=== PATIENT | female | born 1960 | race Caucasian/White ===

== ENCOUNTER 2016-12-31 07:12 | Emergency (ER) | payer OTHER ==
[2016-12-31 07:26] VITALS: BP 120/82
--- NOTE | 2016-12-31 08:10 | EDM.PDOC ---
ED HPI GENERAL MEDICAL PROBLEM - General Chief Complaint: Back Pain or Injury Stated Complaint: BACK PAIN Time Seen by Provider: 12/31/16 08:00 - History of Present Illness INITIAL COMMENTS - FREE TEXT/NARRATIVE: 56-year-old female presents emergency room with low back pain and pelvis pain. Patient significant pain when she sits down. This is getting worse with time. The patient fell on some stairs landing on her left Buttocks on Wednesday of this week. She did not have significant discomfort immediately after this but this is progressively been getting worse. The patient now has some pain that extends down her left leg mostly down the back of her thigh at times she has some discomfort the goes down the medial lower leg but not into her foot. She describes it as an achy sensation not a burning or electrical tingly sensation. The patient is ambulatory without to much difficulty. She has a large bruise developing on her left buttocks. Patient has not had any loss of bowel or bladder control. What seems to bother her the most is prolonged sitting. The patient is concerned about this as she has a vacation coming up in about a week. Patient denies any significant past medical problems related to her back however has had some worsening low back aches that been fairly mild. This is been going on for about a year or so. 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: Neurological History: Reports: Migraines Psychiatric History: Reports: Anxiety Social & Family History - Tobacco Use Smoking Status *Q: Never Smoker Second Hand Smoke Exposure: No - Caffeine Use Caffeine Use: Reports: Energy Drinks - Recreational Drug Use Recreational Drug Use: No ED ROS GENERAL - Review of Systems Review Of Systems: See Below Constitutional: Reports: No Symptoms Respiratory: Reports: No Symptoms Cardiovascular: Reports: No Symptoms GI/Abdominal: Reports: No Symptoms : Reports: No Symptoms Musculoskeletal: Reports: Back Pain, Leg Pain, Muscle Stiffness Neurological: Reports: No Symptoms ED EXAM,LOWER BACK PAIN/INJURY - Physical Exam Exam: See Below Exam Limited By: No Limitations General Appearance: Alert, No Apparent Distress Head: Atraumatic, Normocephalic Neck: Normal Inspection, Supple, Non-Tender, Full Range of Motion Respiratory/Chest: No Respiratory Distress, Lungs Clear, Normal Breath Sounds Cardiovascular: Regular Rate, Rhythm, No Edema, No Murmur GI/Abdominal: Normal Bowel Sounds, Soft, Non-Tender Back Exam: Normal Inspection, Muscle Spasm (She has left-sided paraspinous muscle spasm), Paraspinal Tenderness, Vertebral Tenderness (She has discomfort in the low lumbar region). No: CVA Tenderness (L), CVA Tenderness (R) Extremities: Normal Inspection, Other (Straight leg raises are nondiagnostic on her left side she has localized back pain at about 70 of flexion right-sided straight leg raises are normal) Course - Vital Signs Last Recorded V/S: Last Vital Signs Temp 36.8 C 12/31/16 07:21 Pulse 76 12/31/16 07:21 Resp 18 12/31/16 07:21 BP 120/82 12/31/16 07:21 Pulse Ox 99 12/31/16 07:21 - Re-Assessments/Exams Free Text/Narrative Re-Assessment/Exam: 12/31/16 09:08 X-ray examination of the pelvis is unremarkable of the LS spine is remarkable for spondylolisthesis at L3-4 L3 no acute changes noted. 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 The results of this are reviewed with the patient discussed follow-up with her regular provider on Wednesday on a long-term basis she should avoid lifting anything heavier than 20-25 pounds. She 'll be started on nighttime Flexeril and Naprosyn. Departure - Departure Time of Disposition: 09:30 Disposition: Home, Self-Care 01 Clinical Impression: Low back pain, Spondylolisthesis at L3-L4 level - Discharge Information Prescriptions: Naproxen [Naprosyn] 500 mg PO Q12HR #20 tablet Cyclobenzaprine [Flexeril] 10 mg PO BEDTIME #7 tablet Forms: ED Department Discharge Additional Instructions: Return to the emergency room with any questions problems or worsening symptoms. Follow-up in the clinic on Wednesday for recheck. He didn't started on 2 medications the first one is Naprosyn, or naproxen take one twice daily with meals you may use some Aleve on an as-needed basis after you're done with the naproxen. You been started on a muscle relaxant, Flexeril or cyclobenzaprine. Take one in the evenings this will also be rest and will improve your muscle spasm. This medication can cause sedation, don't use with alcohol and allow 12 hours after using this medication before driving or returning to work. You have spondylolisthesis this appears to be chronic. This is where one of the vertebrae tries to move forward. Avoid any heavy lifting in the future. Do not lift over 20 or 25 pounds.
--- NOTE | 2016-12-31 09:19 | CR ---
Pelvis: AP view of the pelvis was obtained. Comparison: No previous study. Slight joint space narrowing is seen superiorly within the right hip. Joint space within the left hip is preserved. Sacroiliac joints are unremarkable. No fracture or other abnormality is seen. Impression: 1. Mild joint space narrowing superiorly within the right hip. 2. AP pelvis exam is otherwise unremarkable. Diagnostic code #2
--- NOTE | 2016-12-31 09:22 | CR ---
Lumbar spine: AP, lateral and coned-down lateral views centered to the lumbosacral junction were obtained. Moderate disc space narrowing noted at L3-L4. Mild spondylolisthesis by about 5 mm is seen which is most likely due to anomalous apophyseal joint. Other disc spaces are maintained. Mild endplate osteophytes are seen at L3-L4. Pedicles as well as transverse and spinous processes are intact. Impression: 1. Findings at L3-L4 felt to be chronic. Nothing acute is identified. Diagnostic code #2
== END 2016-12-31 09:50 | disposition home or self-care (01) ==
LOC: JD.ED 07:12
DX: M43.16 Spondylolisthesis, lumbar region (principal); F41.9 Anxiety disorder, unspecified; Z79.899 Other long term (current) drug therapy; Z88.0 Allergy status to penicillin
CPT/HCPCS: 72100; 72100-26; 72170; 72170-26; 99283; 99284

== ENCOUNTER 2018-09-09 12:10 | Emergency (ER) | payer OTHER ==
[2018-09-09] MEDS ORDERED: predniSONE 20 MG Tab PO ONE (12:38)
[2018-09-09] MEDS ORDERED: EPINEPHrine 1 MG/ML SDV IM ONE (12:40)
[2018-09-09] MEDS ORDERED: Famotidine 20 MG Tab PO ONE (13:04)
[2018-09-09] MEDS ORDERED: diphenhydrAMINE 50 MG Cap PO ONE (13:04)
--- NOTE | 2018-09-09 13:15 | EDM.PDOC ---
<Michael Davey Keerthi - Last Filed: 09/09/18 15:01> ED HPI GENERAL MEDICAL PROBLEM - General Chief Complaint: Allergic Reaction Stated Complaint: ALLERGIC RX SENT BY NICK ROD Time Seen by Provider: 09/09/18 12:23 Source of Information: Reports: Patient, RN Notes Reviewed History Limitations: Reports: No Limitations - History of Present Illness INITIAL COMMENTS - FREE TEXT/NARRATIVE: 57-year-old female presents to the ER with complaints of allergic reaction to something. She noticed that she had hives and itching along her jaw line and they are now spreading into her ears, back of her throat, hair line and they are making her miserable. She has been taking Benadryl with the last dose at 0700 this morning 50 mg. She has been sick since Wednesday evening at 8 pm when she developed the stomach flu like her grandson had. She had diarrhea and vomiting that lasted till Wednesday then she developed a fever, Wednesday she had body aches, Wednesday she went to work and felt horrible exhausted. she developed rash, hives to her face and now they are spreading. Her throat does feel scratchy and slightly tight. She feels it is getting worse and its driving her nuts. 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 History: heart attack 2006 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: Neurological History: Reports: Migraines Psychiatric History: Reports: Anxiety Social & Family History - Tobacco Use Smoking Status *Q: Never Smoker - Caffeine Use Caffeine Use: Reports: Coffee - Recreational Drug Use Recreational Drug Use: No ED ROS ALLERGIC REACTION - Review of Systems Review Of Systems: See Below Constitutional: Reports: No Symptoms HEENT: Denies: Ear Pain, Hearing Loss, Rhinitis, Throat Pain Respiratory: Reports: Other (slight tightness in throat) Cardiovascular: Reports: No Symptoms Endocrine: Reports: No Symptoms GI/Abdominal: Reports: No Symptoms : Reports: No Symptoms Musculoskeletal: Reports: No Symptoms Skin: Reports: Dryness, Rash, Urticaria Neurological: Reports: No Symptoms Psychiatric: Reports: No Symptoms Hematologic/Lymphatic: Reports: No Symptoms Immunologic: Reports: Other (unsure what cause the allergic reaction and hives) ED EXAM GENERAL NO PERIP PULSE - Physical Exam Exam: See Below Exam Limited By: No Limitations General Appearance: Alert, WD/WN, No Apparent Distress Eye Exam: Bilateral Eye: EOMI, PERRL Ears: Normal External Exam, Normal Canal (hive to the right inner ear at the 6 o 'clock position near the base of the TM, she has a hive at the 1 o'clock position to the left cannal near the TM. ), Hearing Grossly Normal, Normal TMs Nose: Normal Inspection, Normal Mucosa, No Blood. No: Nasal Drainage Throat/Mouth: Normal Inspection, Normal Lips, Normal Teeth, Normal Gums, Normal Oropharynx (throat is slightly red with no ulcers or hive seen), Normal Voice Head: Atraumatic, Normocephalic, Other (Pt is more red along the lower jaw and lips are valentine red. ). No: Facial Swelling, Facial Tenderness, Sinus Tenderness Neck: Normal Inspection, Supple, Non-Tender, Full Range of Motion. No: Lymphadenopathy (L), Lymphadenopathy (R) Respiratory/Chest: No Respiratory Distress, Lungs Clear, Normal Breath Sounds, No Accessory Muscle Use, Other (slight tightness in the throat that itches some) Cardiovascular: Normal Peripheral Pulses, Regular Rate, Rhythm, No Edema, No Gallop, No JVD, No Murmur, No Rub GI/Abdominal: Normal Bowel Sounds, Soft, Non-Tender, No Distention (Female) Exam: Deferred Rectal (Female) Exam: Deferred Back Exam: Normal Inspection, Full Range of Motion Extremities: Normal Inspection, Normal Range of Motion, Non-Tender, Normal Capillary Refill Neurological: Alert, Oriented, CN II-XII Intact, Normal Cognition, Normal Gait, Normal Reflexes, No Motor/Sensory Deficits Psychiatric: Normal Affect, Normal Mood Skin Exam: Warm, Dry, Intact, Normal Color, Erythema (multiple lesions to her jaw line that vary in size and shape; did note increase scaling to ) Lymphatic: No Adenopathy Course - Vital Signs Last Recorded V/S: Last Vital Signs Temp 97.4 F 09/09/18 12:17 Pulse 79 09/09/18 13:28 Resp 20 09/09/18 12:17 BP 133/86 09/09/18 12:17 Pulse Ox 95 09/09/18 13:28 - Orders/Labs/Meds Meds: Medications Discontinued Medications Generic Name Dose Route Start Last Admin Trade Name Shannan PRN Reason Stop Dose Admin Diphenhydramine HCl 50 mg 09/09/18 13:04 09/09/18 13:11 Benadryl PO 09/09/18 13:05 50 mg ONETIME ONE Administration Epinephrine HCl 0.3 mg 09/09/18 12:40 09/09/18 12:56 Adrenalin IM 09/09/18 12:41 0.3 mg ONETIME ONE Administration Famotidine 20 mg 09/09/18 13:04 09/09/18 13:11 Pepcid PO 09/09/18 13:05 20 mg ONETIME ONE Administration Lorazepam 0.5 mg 09/09/18 13:31 09/09/18 15:02 Ativan PO 09/09/18 13:32 Not Given ONETIME ONE Prednisone 60 mg 09/09/18 12:38 09/09/18 12:56 Prednisone PO 09/09/18 12:39 60 mg ONETIME ONE Administration - Re-Assessments/Exams Free Text/Narrative Re-Assessment/Exam: 09/09/18 13:00 In to see patient she is still itching nothing has changed, discussed the medications that she will be receiving benadry, pepcid and prednisone. Pt is okay with taking these medications. 09/09/18 14:00 In to see patient and she is still itching a lot to her ears and jaw. Her lips are not burning as much she is finally feeling the jitters from the epinephrine. Did talk with her about how long it takes the medications to work and she understands that it will take awhile. She is wanting to hold off on the ativan for now unless her jitters get worse. Departure - Departure Disposition: Home, Self-Care 01 Clinical Impression: Allergic reaction Qualifiers: Encounter type: initial encounter Qualified Code(s): T78.40XA - Allergy, unspecified, initial encounter - Discharge Information Prescriptions: predniSONE [Prednisone] 20 mg PO DAILY #10 tablet Referrals: Nick Rod PA-C [Primary Care Provider] - Forms: ED Department Discharge Additional Instructions: Stop any current lotions or creams that you have been using. If you do need anything for moisturization Lubriderm is safe. Continue Benadryl every 6-8 hours as needed for severe rash or itching, also start Claritin or Zyrtec 10 mg daily. Prednisone 40 mg for the next 5 days, take that in the morning with your next dose tomorrow morning. Follow-up with your regular medical provider if not much better within 3-5 days as expected, return to ED as needed if symptoms worsening in any way. 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 I have also examined patient. I agree with hx and exam as documented. 09/10/18 13:50 Departure - Departure Time of Disposition: 14:35 Condition: Fair
[2018-09-09 13:20] VITALS: BP 133/86
[2018-09-09] MEDS ORDERED: LORazepam 0.5 MG Tab PO ONE (13:31)
== END 2018-09-09 14:55 | disposition home or self-care (01) ==
LOC: JD.ED 12:10
DX: T78.40XA Allergy, unspecified, initial encounter (principal); F41.9 Anxiety disorder, unspecified; Z79.899 Other long term (current) drug therapy; Z88.0 Allergy status to penicillin
CPT/HCPCS: 96372; 99283; A9270; J0171

== ENCOUNTER 2021-02-04 14:13 | Emergency (ER) | payer OTHER ==
[2021-02-04 14:24] VITALS: BP 157/102; PULSE 83
--- NOTE | 2021-02-04 14:51 | EDM.PDOC ---
ED HPI GENERAL MEDICAL PROBLEM - General Chief Complaint: Upper Extremity Injury/Pain Stated Complaint: FALL/LEFT ARM/SHOULDER INJURY Time Seen by Provider: 02/04/21 14:24 Source of Information: Reports: Patient History Limitations: Reports: No Limitations - History of Present Illness INITIAL COMMENTS - FREE TEXT/NARRATIVE: 60-year-old female presents the emergency department today after falling down approximately 5 stairs approximately 1 hour ago. She states that she was walking down stairs and missed a step and then kind of fell and landed on her left hip and slid down the remaining stairs. She adamantly denies hitting her head or being knocked unconscious. She does not recall exactly how she landed on her arm however she has pain to her left shoulder the middle of her left humerus. And her distal radius and ulnar area. She also has pain noted to the left buttocks area. She states she has an implanted device for her bladder in that area and she is concerned that this may have broken as she feels as though she is getting electric shock to her left buttocks. Left Arm Pain Score (Numeric/FACES): 6 - Related Data Allergies Allergy/AdvReac Type Severity Reaction Status Date / Time Penicillins Allergy can't Verified 02/04/21 14:26 remember Home Meds: Home Meds Lisinopril 2.5 mg PO DAILY 09/09/18 [History] Sertraline [Zoloft] 100 mg PO DAILY 09/09/18 [History] Zolpidem [Ambien] 10 mg PO BEDTIME 09/09/18 [History] predniSONE [Prednisone] 20 mg PO DAILY #10 tablet 09/09/18 [Rx] Past Medical History HEENT History: Reports: Other (See Below) Other HEENT History: "eye twitching" Cardiovascular History: Reports: Other (See Below) Other Cardiovascular History: heart attack 2006 Genitourinary History: Reports: Urinary Incontinence 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: Neurological History: Reports: Migraines Psychiatric History: Reports: Anxiety - Past Surgical History Female Surgical History: Reports: Other (See Below) Other Female Surgeries/Procedures: implant placed in hip for incontinence Musculoskeletal Surgical History: Reports: Shoulder Surgery Social & Family History - Tobacco Use Tobacco Use Status *Q: Never Tobacco User Second Hand Smoke Exposure: No - Caffeine Use Caffeine Use: Reports: Coffee - Recreational Drug Use Recreational Drug Use: No Review of Systems - Review of Systems Review Of Systems: Comprehensive ROS is negative, except as noted in HPI. ED EXAM, GENERAL - Physical Exam Exam: See Below Exam Limited By: No Limitations General Appearance: Alert, WD/WN, No Apparent Distress Ears: Normal External Exam, Hearing Grossly Normal Nose: Normal Inspection Throat/Mouth: Normal Inspection, Normal Lips, Normal Voice, No Airway Compromise Head: Atraumatic Neck: Normal Inspection, Supple Respiratory/Chest: No Respiratory Distress, No Accessory Muscle Use Cardiovascular: Normal Peripheral Pulses, Regular Rate, Rhythm, No Edema Peripheral Pulses: 2+: Radial (L), Radial (R) GI/Abdominal: No Distention (Female) Exam: Deferred Rectal (Female) Exam: Deferred Back Exam: Normal Inspection Extremities: Normal Inspection. No: Normal Range of Motion (Creased range of motion to left shoulder), Non-Tender (Tenderness noted to left posterior shoulder, left middle anterior humerus, left wrist) Neurological: Alert, Oriented, Normal Cognition Psychiatric: Normal Affect, Normal Mood Skin Exam: Warm, Dry, Intact, Normal Color, No Rash Lymphatic: No Adenopathy Course - Vital Signs Text/Narrative:: Upon assessment, the patient has pain to posterior left shoulder area. She has pain noted to the anterior mid humerus area. She complains of pain noted to the distal radius and ulnar area as well as numbness and tingling to all the fingertips. She is able to feel when I touch her fingers however and she is able to wiggle all digits. Radial pulses present. There is no swelling or bruising noted to the areas where she complains of pain and tenderness. She was able to ambulate into the emergency department and complains of pain to the left buttock area. There is no bruising or redness noted to that area. And is unable to raise her left arm laterally or anteriorly. I have ordered an x-ray of the left hip with pelvis, x-ray of the left shoulder, left humerus, left forearm and left wrist. We will also order for her to receive Tylenol 975 mg p.o. x1 dose now. Last Recorded V/S: Last Vital Signs Temp 97 F 02/04/21 14:21 Pulse 83 02/04/21 14:21 Resp 16 02/04/21 14:21 BP 157/102 H 02/04/21 14:21 Pulse Ox 95 02/04/21 14:21 - Orders/Labs/Meds Orders: Active Orders 24 hr Category Date Time Status Hip Min 2V or 3V w Pelvis Lt [CR] Stat Exams 02/04/21 14:43 Taken Meds: Medications Discontinued Medications Generic Name Dose Route Start Last Admin Trade Name Shannan PRN Reason Stop Dose Admin Acetaminophen 975 mg 02/04/21 14:44 02/04/21 15:28 Acetaminophen 325 Mg Tab PO 02/04/21 14:45 975 mg NOW ONE Administration - Re-Assessments/Exams Free Text/Narrative Re-Assessment/Exam: 02/04/21 15:39 Radiologist impression 4 view of the left wrist: 1. No acute bony abnormality is seen on left wrist exam Radiologist impression 2 view of the left forearm: 1. Nothing acute is seen on 2 view of left forearm study. Radiologist impression 2 view of the left humerus: 1. Nothing acute is appreciated on 2 view of the left humerus study. Radiologist impression 3 view of left shoulder: 1. Mild degenerative change within the acromioclavicular joint. 2. Nothing acute is seen on left shoulder study. Radiologist impression AP views of the pelvis as well as frog-leg lateral view of the left hip: 1. Mild degenerative change within both hips. 2. Electrostimulation device is seen. 3. Nothing acute is otherwise seen on AP pelvis or 2 view left hip exam. Patient will be discharged home in place into the left shoulder sling. To prevent further injury or pain. Will recommend that she follow-up with Dr. Linares in about a week if she is not feeling better. Departure - Departure Time of Disposition: 15:45 Disposition: Home, Self-Care 01 Condition: Good Clinical Impression: Contusion of left shoulder Qualifiers: Encounter type: initial encounter Qualified Code(s): S40.012A - Contusion of left shoulder, initial encounter Contusion of left arm Qualifiers: Encounter type: initial encounter Qualified Code(s): S40.022A - Contusion of left upper arm, initial encounter Contusion of hip Qualifiers: Encounter type: initial encounter Laterality: left Qualified Code(s): S70.02XA - Contusion of left hip, initial encounter - Discharge Information Referrals: Anali Rod PA-C [Primary Care Provider] - Forms: ED Department Discharge Additional Instructions: You were seen in the emergency department today after injuring your shoulder, left arm and wrist. X-rays were completed as well as an x-ray of your left hip. There is no broken bones noted. However, your left arm was placed in a sling and would recommend that you take anti-inflammatory medications such as Aleve 2 tabs every 12 hours or ibuprofen 600 mg every 6-8 hours for the next 48 hours to decrease inflammation and pain. Also recommend that you use ice 30 minutes at a time every 3 hours while awake to the affected areas. Do not use heat for the next 48 hours. Should you still have decreased range of motion and pain to her left shoulder in about a week, recommend that you follow-up with Dr. Linares at [facility]. The phone number for his clinic is [phone]. Sepsis Event Note (ED) - Evaluation Sepsis Screening Result: No Definite Risk - Focused Exam Vital Signs: Vital Signs Temp Pulse Resp BP Pulse Ox 02/04/21 14:21 97 F 83 16 157/102 H 95 - My Orders Last 24 Hours: My Active Orders 02/04/21 14:43 Hip Min 2V or 3V w Pelvis Lt [CR] Stat - Assessment/Plan Last 24 Hours: My Active Orders 02/04/21 14:43 Hip Min 2V or 3V w Pelvis Lt [CR] Stat
[2021-02-04] MEDS: Acetaminophen 325 MG Tab PO ONE (15:28)
--- NOTE | 2021-02-04 15:31 | CR ---
Left forearm: 2 views of the left forearm were obtained. Comparison: No prior forearm study is available. No discrete fracture or other bony abnormality is appreciated. Impression: 1. Nothing acute is seen on 2 view left forearm study. Diagnostic code #1
--- NOTE | 2021-02-04 15:32 | CR ---
Left humerus: 2 views of the left humerus were obtained. Comparison: No prior humerus study is available. No fracture or other bony abnormality is appreciated. Impression: 1. Nothing acute is appreciated on 2 view left humerus study. Diagnostic code #1
--- NOTE | 2021-02-04 15:33 | CR ---
Left shoulder: 3 views left shoulder were obtained. Comparison: No prior left shoulder study is available. Mild joint space narrowing is seen within the acromioclavicular joint with mild inferior spurring. Glenohumeral joint is within normal limits. No acute fracture, dislocation or other bony abnormality is seen. Impression: 1. Mild degenerative change within the acromioclavicular joint. 2. Nothing acute is seen on left shoulder study. Diagnostic code #2
--- NOTE | 2021-02-04 15:35 | CR ---
Left wrist: 4 views of the left wrist were obtained. Comparison: No prior wrist exam is available. Joint spaces are maintained. No acute fracture, dislocation or other bony abnormality is appreciated. Impression: 1. No acute bony abnormality is seen on left wrist exam. Diagnostic code #1
--- NOTE | 2021-02-04 15:40 | CR ---
Pelvis and left hip: AP view of the pelvis was obtained as well as AP and frog-leg lateral views of the left hip. Comparison: Prior pelvis exam of 12/31/16. Electro-stimulating device is seen within the pelvis. This is an interval change from prior exam. Joint space narrowing that was noted on prior study within the superior right hip is less prominent on current exam. Minimal joint space narrowing is noted within the lateral left hip. Slight cystic change is suggested within the lateral right femoral head which is similar to prior study presumably due to degenerative change. Sacroiliac joints are normal. No acute fracture or other bony abnormality is appreciated. Impression: 1. Mild degenerative change within both hips. 2. Electro-stimulating device is seen. 3. Nothing acute is otherwise seen on AP pelvis or 2 view left hip exam. Diagnostic code #2
== END 2021-02-04 16:00 | disposition home or self-care (01) ==
LOC: JD.ED 14:13
DX: S70.02XA Contusion of left hip, initial encounter (principal); S40.012A Contusion of left shoulder, initial encounter; S40.022A Contusion of left upper arm, initial encounter; Z88.0 Allergy status to penicillin; Z79.899 Other long term (current) drug therapy; W10.8XXA Fall (on) (from) other stairs and steps, initial encounter
CPT/HCPCS: 73030; 73060; 73090; 73110; 73502; 99283; A9270

== ENCOUNTER 2023-08-22 16:22 | Emergency (ER) | payer OTHER ==
[2023-08-22] MEDS: Sodium Chloride 0.9% 1,000 ML IV SCH (17:51)
[2023-08-22] MEDS: Iopamidol 612 MG/ML 100 ML Bottle IVPUSH ONE (18:26)
[2023-08-22] MEDS: Sodium Chloride 0.9% 10 ML Syringe FLUSH PRN (18:26)
[2023-08-22] MEDS: Meloxicam 7.5 MG Tab PO ONE (19:14)
[2023-08-22 19:26] VITALS: BP 124/69; PULSE 74
== END 2023-08-22 19:24 | disposition home or self-care (01) ==
LOC: JD.ED 16:22
DX: S29.012A Strain of muscle and tendon of back wall of thorax, initial encounter (principal); S39.012A Strain of muscle, fascia and tendon of lower back, initial encounter; S20.212A Contusion of left front wall of thorax, initial encounter; I25.2 Old myocardial infarction; Z79.899 Other long term (current) drug therapy; Z88.0 Allergy status to penicillin; V28.49XA Other motorcycle driver injured in noncollision transport accident in traffic accident, initial encounter; Y92.410 Unspecified street and highway as the place of occurrence of the external cause
CPT/HCPCS: 71260; 72131; 99284; A9270; J3490; J7030; Q9967; 99283

== ENCOUNTER 2024-01-20 10:34 | Day surgery (SDC) | payer OTHER ==
[~2024-01-20 10:34] MED LIST: Sodium Chloride 0.9% 10 ML Syringe FLUSH PRN; Sodium Chloride 0.9% 10 ML Syringe FLUSH SCH
[2024-01-20] MEDS: Lactated Ringers 1,000 ML IV SCH (10:58)
[2024-01-20] MEDS ORDERED: Propofol 200 MG/20 ML SDV ONE (11:16)
[2024-01-20] MEDS ORDERED: fentaNYL 100 MCG/2 ML SDV ONE (11:16)
[2024-01-20] MEDS ORDERED: Midazolam 1 MG/ML 2 ML SDV ONE (12:05)
[2024-01-20] MEDS ORDERED: dexmedeTOMIDine HCl 200 MCG/2 ML SDV ONE (12:07)
[2024-01-20] MEDS: Bupivacaine 0.5% 30 ML SDV ONE (12:57)
[2024-01-20 14:30] VITALS: BP 110/74; PULSE 74
== END 2024-01-20 14:05 | disposition home or self-care (01) ==
LOC: JD.SDS 10:34
PROVIDERS: ATTEND Surgery
DX: R22.1 Localized swelling, mass and lump, neck (principal); F41.9 Anxiety disorder, unspecified; I10 Essential (primary) hypertension; E78.5 Hyperlipidemia, unspecified; Z79.899 Other long term (current) drug therapy; Z88.0 Allergy status to penicillin; Z88.5 Allergy status to narcotic agent; Z91.018 Allergy to other foods
CPT/HCPCS: 11421; J0665; J2250; J2704; J3010; J7120; 00300; J3490

== ENCOUNTER 2024-05-27 19:38 | Emergency (ER) | payer OTHER ==
[2024-05-27 20:18] VITALS: BP 129/96; PULSE 100
[2024-05-27 20:54] LABS: BASOPHILS PERCENT AUTO 0.1 % (0.0-1.0); EOSINOPHILS PERCENT AUTO 0.1 % (0.0-6.0); HEMATOCRIT 40.9 % (37.0-47.0); IMMATURE GRAN ABSOLUTE AUTO 0.04 K/mm3 (0.00-0.05); IMMATURE GRAN PERCENT AUTO 0.5 % (0.0-0.4); LYMPHOCYTES ABSOLUTE AUTO 2.1 K/mm3 (1.0-4.8); MEAN CORPUSCULAR HEMOGLOBIN 28.4 pg (28.0-32.0); MEAN CORPUSCULAR HGB CONC 31.8 g/dl (32.0-36.0); MEAN CORPUSCULAR VOLUME 89.5 fl (83.0-99.0); MEAN PLATELET VOLUME 9.8 fl (9.4-12.3); MONOCYTES ABSOLUTE AUTO 0.6 K/mm3 (0.0-0.8); MONOCYTES PERCENT AUTO 6.8 % (0.0-8.0); NEUTROPHILS ABSOLUTE AUTO 5.7 K/mm3 (1.8-7.7); NEUTROPHILS PERCENT AUTO 67.5 % (41.0-71.0); PLATELET COUNT,PLT 470 K/mm3 (150-400); RED BLOOD CELL COUNT 4.57 M/mm3 (4.10-5.30); WHITE BLOOD CELL COUNT,WBC 8.39 K/mm3 (3.9-11.3)
[2024-05-27 21:16] LABS: A/G RATIO 0.9 (1-2); ALBUMIN 3.4 g/dl (3.4-5.0); BILIRUBIN TOTAL 0.2 mg/dL (0.2-1.0); BUN/CREATININE RATIO 14.4 (14-18); CALCIUM 8.7 mg/dL (8.5-10.1); CREATININE 0.9 mg/dL (0.55-1.02); EST CRCL DRUG DOSING (CG) 66.22 mL/min; PROTEIN TOTAL,TP 7.2 g/dl (6.4-8.2)
[2024-05-27] MEDS: Sodium Chloride 0.9% 1,000 ML IV ONE (21:16)
[2024-05-27] MEDS: Sodium Chloride 0.9% 10 ML Syringe FLUSH PRN (21:16)
[2024-05-27 21:18] LABS: LACTIC ACID 0.5 mmol/L (0.4-2.0)
[2024-05-27] MEDS: Iopamidol 612 MG/ML 100 ML Bottle IVPUSH ONE (21:29)
[2024-05-27] MEDS: Iopamidol 612 MG/ML 30 ML SDV IVPUSH ONE (21:29)
[2024-05-28] MEDS: Sulfamethoxazole/Trimethoprim 800-160 MG Tab PO ONE (01:57)
[2024-05-28] MEDS: Cephalexin 500 MG Cap PO ONE (01:57)
== END 2024-05-28 02:02 | disposition home or self-care (01) ==
LOC: JD.ED 19:38
DX: M54.50 Low back pain, unspecified (principal); Z88.0 Allergy status to penicillin; Z79.899 Other long term (current) drug therapy
CPT/HCPCS: 36415; 72132; 80053; 83605; 85025; 87040; 96360; 99284; A9270; J7030; Q9967

== ENCOUNTER 2024-08-15 06:49 | Day surgery (SDC) | payer OTHER ==
[2024-08-15] MEDS: Lactated Ringers 1,000 ML IV SCH (07:10)
[2024-08-15] MEDS ORDERED: Propofol 200 MG/20 ML SDV ONE ×2 (07:11→07:16)
[2024-08-15 09:16] VITALS: BP 119/72; PULSE 79
== END 2024-08-15 08:25 | disposition home or self-care (01) ==
LOC: JD.SDS 06:49
PROVIDERS: ATTEND Surgery
DX: Z12.11 Encounter for screening for malignant neoplasm of colon (principal); K57.30 Diverticulosis of large intestine without perforation or abscess without bleeding; Z88.0 Allergy status to penicillin; Z79.899 Other long term (current) drug therapy
CPT/HCPCS: 45378; J2704; J7120; 00812